=== PATIENT | female | born 1940 | race Caucasian/White ===

== ENCOUNTER 2017-03-25 09:56 | Day surgery (SDC) | payer OTHER ==
[~2017-03-25] VITALS: Ht 144.8 cm; Wt 77.6 kg
[~2017-03-25 09:56] MED LIST: ALBU8HFA2 INH; ALBU90OI INH; ALBU90OI6 INH; ALBU90OI61 INH; ALLERGY RELIE15.8 ML INH; ALLERGY RELIEF10 MG PO; ALPR.5 PO; ALPR1 PO; CAPT25 PO; CELE200 PO; CLON.5 PO; Cipro500 MG PO; DICL.1SO OD; DICL25ER PO; DICL75ER PO; DIPATR PO; DIPH50 PO; ERGO400 PO; FLUT44OIA IH; Flovent Diskus50 MCG; GABA300 PO; GABA400 PO; GABA800 PO; GUMMY1 EACH PO; HYDACE5325 PO; LEVA.63IS IH; LEVALBUTEROL; LEVCAR10 PO; LEVFLO500 PO; LISI5 PO; LORA1 PO; LOSA50 PO; LOSARTAN POTASS25 MG PO; MELO7.5 PO; METH5 PO; METO50 PO; MILN100T PO; MONT10T PO; NAPR220 PO; NAPR550 PO; OMEP20ER PO; OMEP40CA12 PO; OXYACE5T PO; OXYC5 PO; PANT40 PO; PROM25 PO; Prednisone20 MG PO; QUET25 PO; SULTRIDS PO; SULTRISS PO; TIZA4 PO; TIZANIDINE PO; TRAM50 PO; VITAMIN D5000 UNIT PO
== END 2017-03-25 11:53 | disposition home or self-care (01) ==
LOC: ORSCMMR 09:56
PROVIDERS: Internal Medicine Gastroenterology
PROC: 0DB68ZX Excision of Stomach, Via Natural or Artificial Opening Endoscopic, Diagnostic (ICD-10-PCS; principal; 2017-03-25 11:00)
PROC: 0DB88ZX Excision of Small Intestine, Via Natural or Artificial Opening Endoscopic, Diagnostic (ICD-10-PCS; principal; 2017-03-25 11:00)
PROC: 0DB48ZX Excision of Esophagogastric Junction, Via Natural or Artificial Opening Endoscopic, Diagnostic (ICD-10-PCS; principal; 2017-03-25 11:00)
DX: R10.13 Epigastric pain (principal); K21.9 Gastro-esophageal reflux disease without esophagitis; K29.70 Gastritis, unspecified, without bleeding; J44.9 Chronic obstructive pulmonary disease, unspecified; Z79.899 Other long term (current) drug therapy; E66.01 Morbid (severe) obesity due to excess calories; Z68.37 Body mass index [BMI] 37.0-37.9, adult
CPT/HCPCS: 88305; 88342; J7120

== ENCOUNTER 2017-04-16 00:45 | Emergency (ER) | payer OTHER ==
[~2017-04-16] VITALS: Ht 147.3 cm; Wt 77.1 kg
[2017-04-16 01:15] LABS: Calcium, Ionized (POC) 1.19 mmol/L (1.10-1.46); Chloride (POC) 102 mmol/L (98-108); Glucose (ISTAT POC) 170 mg/dL (70-99); Hemoglobin (POC) 15.3 g/dL (12.0-16.0); Potassium (POC) 4.6 mmol/L (3.5-5.5); Sodium (POC) 140 mmol/L (135-148); Total CO2 (POC) 28 mmol/L (21-32)
[2017-04-16 01:53] LABS: BASOPHILS ABSOLUTE AUTO 0.03 K/mm3 (0.00-0.23); BASOPHILS PERCENT AUTO 1 % (0-2); EOSINOPHILS ABSOLUTE AUTO 0.21 K/mm3 (0.00-0.68); EOSINOPHILS PERCENT AUTO 4 % (0-6); Hemoglobin 12.9 g/dL (11.5-16.0); IMMATURE GRAN ABSOLUTE AUTO 0.01 K/mm3 (0.00-0.10); IMMATURE GRAN PERCENT AUTO 0 % (0-1); LYMPHOCYTES ABSOLUTE AUTO 1.78 K/mm3 (0.84-5.20); LYMPHOCYTES PERCENT AUTO 33 % (21-46); MONOCYTES PERCENT AUTO 9 % (4-13); Mean Corpuscular HGB 29.9 pg (26.0-34.0); Mean Corpuscular HGB Conc 30.7 g/dL (31.5-36.5); Mean Corpuscular Volume 97 fL (80-100); NEUTROPHILS PERCENT AUTO 53 % (41-73); Platelet Count 150 K/mm3 (150-400); RDW Coefficient Variation 13.5 % (11.7-14.2); RDW Standard Deviation 48.4 fL (35.1-46.3); Red Blood Cell Count 4.32 M/mm3 (3.80-5.20); White Blood Cell Count 5.33 K/mm3 (4.00-11.30)
[2017-04-16 02:09] LABS: Albumin/Globulin Ratio 0.9 (0.8-1.8); Bilirubin, Total 0.3 mg/dL (0.1-1.0); Bun/Creatinine Ratio 22.1 (12.0-20.0); Calcium, Blood 8.3 mg/dL (8.5-10.1); Creatinine, Blood 1.04 mg/dL (0.40-1.00); Globulin, Blood 3.2 g/dL (2.2-4.0); Potassium, Blood 4.4 mmol/L (3.5-5.5); Total Protein, Blood 6.2 g/dL (6.4-8.2)
== END 2017-04-16 05:03 | disposition home or self-care (01) ==
LOC: ER 00:45
PROVIDERS: Emergency Medicine
DX: N99.528 Other complication of incontinent external stoma of urinary tract (principal); R39.198 Other difficulties with micturition; Z88.0 Allergy status to penicillin; Z88.8 Allergy status to other drugs, medicaments and biological substances; Z79.899 Other long term (current) drug therapy; J45.909 Unspecified asthma, uncomplicated
CPT/HCPCS: 36415; 51701; 74177; 80047; 80053; 85014; 85025; 99284; Q9967

== ENCOUNTER → 2018-09-02 | Outpatient (CLI) | payer OTHER | END | disposition home or self-care (01) | LOC: LAB SHORT 18:00 → LAB 18:00 → LAB FUT 09-02 11:30 | DX: D86.9 Sarcoidosis, unspecified (principal); K52.9 Noninfective gastroenteritis and colitis, unspecified; R53.83 Other fatigue | CPT/HCPCS: 87015; 87045; 87046; 87177; 87205; 87209; 87493; 87899 ==

== ENCOUNTER 2018-12-22 09:22 | Emergency (ER) | payer OTHER ==
[~2018-12-22] VITALS: Ht 139.7 cm; Wt 74.8 kg
[2018-12-22] MEDS ORDERED: OMEPRAZOLE20 MG PO (09:48)
[2018-12-22] MEDS ORDERED: FLUT1DIS5 INH (09:49)
[2018-12-22 09:58] LABS: BASOPHILS ABSOLUTE AUTO 0.05 K/mm3 (0.00-0.23); BASOPHILS PERCENT AUTO 1 % (0-2); EOSINOPHILS ABSOLUTE AUTO 0.23 K/mm3 (0.00-0.68); EOSINOPHILS PERCENT AUTO 3 % (0-6); Hematocrit 43.1 % (33.0-51.0); Hemoglobin 13.8 g/dL (11.5-16.0); IMMATURE GRAN ABSOLUTE AUTO 0.01 K/mm3 (0.00-0.10); IMMATURE GRAN PERCENT AUTO 0 % (0-1); LYMPHOCYTES ABSOLUTE AUTO 2.24 K/mm3 (0.84-5.20); LYMPHOCYTES PERCENT AUTO 34 % (21-46); MONOCYTES PERCENT AUTO 8 % (4-13); Mean Corpuscular Volume 97 fL (80-100); NEUTROPHILS ABSOLUTE AUTO 3.65 K/mm3 (1.96-9.15); NEUTROPHILS PERCENT AUTO 55 % (41-73); Platelet Count 125 K/mm3 (150-400); RDW Coefficient Variation 14.8 % (11.7-14.2); RDW Standard Deviation 53.4 fL (35.1-46.3); Red Blood Cell Count 4.45 M/mm3 (3.80-5.20); White Blood Cell Count 6.68 K/mm3 (4.00-11.30)
[2018-12-22 10:12] LABS: Alanine Aminotransfer (ALT/SGP 24 U/L (12-78); Albumin, Blood 3.1 g/dL (3.4-5.0); Albumin/Globulin Ratio 0.9 (0.8-1.8); Alk Phos 125 U/L (50-136); Anion Gap 10 mmol/L (6-16); Aspartate Aminotrans (AST/SGOT 33 U/L (12-37); Bilirubin, Total 0.5 mg/dL (0.1-1.0); Blood Urea Nitrogen 9 mg/dL (8-24); Bun/Creatinine Ratio 12.4 (12.0-20.0); CO2, Blood 21 mmol/L (21-32); Calcium, Blood 8.6 mg/dL (8.5-10.1); Chloride, Blood 113 mmol/L (98-108); Creatinine, Blood 0.72 mg/dL (0.40-1.00); Globulin, Blood 3.6 g/dL (2.2-4.0); Glomerular Filtration Rate >60 (60-); Glucose, Blood 134 mg/dL (70-99); Potassium, Blood 3.6 mmol/L (3.5-5.5); Sodium, Blood 144 mmol/L (136-145); Total Protein, Blood 6.7 g/dL (6.4-8.2); Troponin I <0.015 ng/mL (0.000-0.040)
[2018-12-22 11:18] LABS: Source, Urine Clean Catch
[2018-12-22 11:30] LABS: Appearance, Urine Clear (Clear); Bilirubin, Urine Neg (Neg); Blood, Urine 3+ (Neg); Color, Urine Yellow (P-Yellow); Glucose Qualitative, Urine Neg (Neg); Ketones, Urine Neg (Neg); Leukocyte Esterase, Urine Neg (Neg); Nitrite, Urine Pos (Neg); Protein, Urine 1+ (Neg); Urobilinogen, Urine NORM (Normal)
[2018-12-22 12:05] LABS: Bacteria Many /hpf; Squamous Epithelial Cells Few /hpf (Few)
[2018-12-22] MEDS ORDERED: LEVFLO500 PO (14:21)
[2018-12-23] MEDS ORDERED: ALBU2.5V5 NEB (16:42)
== END 2018-12-22 16:15 | disposition home or self-care (01) ==
LOC: ER 09:22
PROVIDERS: Physician Assistant
DX: N39.0 Urinary tract infection, site not specified (principal); R11.2 Nausea with vomiting, unspecified; Z88.0 Allergy status to penicillin; Z88.6 Allergy status to analgesic agent; Z88.8 Allergy status to other drugs, medicaments and biological substances; Z79.899 Other long term (current) drug therapy; J45.909 Unspecified asthma, uncomplicated
CPT/HCPCS: 36415; 51701; 71046; 80053; 81001; 84484; 85025; 87086; 93005; 93010; 96361-59; 96374-59; 96375-59; 99284-25; J1956; J2405; J7120

== ENCOUNTER 2018-12-23 04:03 | Emergency (ER) | payer OTHER ==
[~2018-12-23] VITALS: Ht 139.7 cm; Wt 74.8 kg
[~2018-12-23 04:03] MED LIST changes: +FLUT1DIS5 INH; +OMEPRAZOLE20 MG PO
[2018-12-23 05:15] LABS: Calcium, Ionized (POC) 1.18 mmol/L (1.10-1.46); Chloride (POC) 112 mmol/L (98-108); Creatinine (POC) 0.6 mg/dL (0.6-1.0); Glucose (ISTAT POC) 125 mg/dL (70-99); Hemoglobin (POC) 12.2 g/dL (12.0-16.0); Potassium (POC) 3.9 mmol/L (3.5-5.5); Sodium (POC) 143 mmol/L (135-148); Total CO2 (POC) 24 mmol/L (21-32)
[2018-12-23] MEDS ORDERED: ALBU2.5V5 NEB (16:42)
[2018-12-24] MEDS ORDERED: LOPE2C PO (00:31)
[2018-12-24] MEDS ORDERED: BENADRYL25 MG PO (00:32)
== END 2018-12-23 06:04 | disposition home or self-care (01) ==
LOC: ER 04:03
PROVIDERS: Emergency Medicine
DX: K29.70 Gastritis, unspecified, without bleeding (principal); J45.909 Unspecified asthma, uncomplicated; Z88.0 Allergy status to penicillin; Z79.899 Other long term (current) drug therapy
CPT/HCPCS: 80047; 85014; 99283

== ENCOUNTER 2018-12-23 13:27 | Inpatient (IN) | payer OTHER ==
[~2018-12-23] VITALS: Ht 139.7 cm; Wt 76.0 kg
[2018-12-23 14:04] LABS: BASOPHILS ABSOLUTE AUTO 0.02 K/mm3 (0.00-0.23); BASOPHILS PERCENT AUTO 0 % (0-2); EOSINOPHILS ABSOLUTE AUTO 0.06 K/mm3 (0.00-0.68); EOSINOPHILS PERCENT AUTO 1 % (0-6); Hematocrit 42.8 % (33.0-51.0); Hemoglobin 13.4 g/dL (11.5-16.0); IMMATURE GRAN ABSOLUTE AUTO 0.03 K/mm3 (0.00-0.10); IMMATURE GRAN PERCENT AUTO 0 % (0-1); LYMPHOCYTES ABSOLUTE AUTO 1.66 K/mm3 (0.84-5.20); LYMPHOCYTES PERCENT AUTO 23 % (21-46); MONOCYTES ABSOLUTE AUTO 0.55 K/mm3 (0.16-1.47); MONOCYTES PERCENT AUTO 8 % (4-13); Mean Corpuscular HGB 30.9 pg (26.0-34.0); Mean Corpuscular HGB Conc 31.3 g/dL (31.5-36.5); Mean Corpuscular Volume 99 fL (80-100); Mean Platelet Volume 10.5 fL (9.1-12.4); NEUTROPHILS ABSOLUTE AUTO 4.94 K/mm3 (1.96-9.15); NEUTROPHILS PERCENT AUTO 68 % (41-73); Platelet Count 133 K/mm3 (150-400); RDW Coefficient Variation 15.1 % (11.7-14.2); RDW Standard Deviation 55.4 fL (35.1-46.3); Red Blood Cell Count 4.34 M/mm3 (3.80-5.20); White Blood Cell Count 7.26 K/mm3 (4.00-11.30)
[2018-12-23 14:22] LABS: Alanine Aminotransfer (ALT/SGP 24 U/L (12-78); Albumin/Globulin Ratio 0.9 (0.8-1.8); Alk Phos 107 U/L (50-136); Anion Gap 5 mmol/L (6-16); Aspartate Aminotrans (AST/SGOT 36 U/L (12-37); Bilirubin, Total 0.6 mg/dL (0.1-1.0); Blood Urea Nitrogen 10 mg/dL (8-24); CO2, Blood 24 mmol/L (21-32); Calcium, Blood 8.5 mg/dL (8.5-10.1); Chloride, Blood 115 mmol/L (98-108); Creatinine, Blood 0.71 mg/dL (0.40-1.00); Globulin, Blood 3.4 g/dL (2.2-4.0); Glomerular Filtration Rate >60 (60-); Glucose, Blood 110 mg/dL (70-99); Sodium, Blood 144 mmol/L (136-145); Total Protein, Blood 6.4 g/dL (6.4-8.2)
[2018-12-23] MEDS ORDERED: ALBU2.5V5 NEB (16:42)
[2018-12-23 17:13] LABS: Source, Urine Clean Catch
[2018-12-23 17:16] LABS: Bilirubin, Urine Neg (Neg); Blood, Urine 3+ (Neg); Glucose Qualitative, Urine Neg (Neg); Ketones, Urine 1+ (Neg); Leukocyte Esterase, Urine Neg (Neg); Nitrite, Urine Neg (Neg); Protein, Urine Neg (Neg); Urobilinogen, Urine NORM (Normal)
[2018-12-23 17:32] LABS: Appearance, Urine Hazy (Clear); Color, Urine Yellow (P-Yellow)
[2018-12-23 18:06] LABS: Squamous Epithelial Cells Rare /hpf (Few)
[2018-12-23 18:07] LABS: Bacteria Few /hpf
[2018-12-24] MEDS ORDERED: LOPE2C PO (00:31)
[2018-12-24] MEDS ORDERED: BENADRYL25 MG PO (00:32)
--- NOTE | 2018-12-24 01:47 | NUR ---
BEGINNING SHIFT SUMMARY ASSUMED CARE PT @ 1915. PT WAS LYING IN BED C/O SEVERE NEASEA EYES CLOSED AND MOANING. IV INFLITRATED AND WENDY.BXM INSERTED NEW IV INTO ZACH INFUSING WITH NS AND ABX . PT C/O PAIN AT IV SITE, HEAT PACK APPLIED AND HAS DENIED PAIN SINCE. INSPIRATORY WHEEZES R LUNG, BREATHING UNLABRED, DYSPNEA ON EXERTION, DENIES SOB. HEART SOUNDS REGULAR. NUMBNESS AND TINGLING IN LOWER EXTREMITIES. GENERALIZED WEAKNESS. HPERACTIVE BOWEL SOUNDS AND LIQUID STOOLS THROUGHOUT SHIFT. HX OF GASTRITIS. HOSPITALIST CALLED AND PERSCRIBED IMODIAM. PT HAS A FELISHA BLADDER IN THE RLQ AND WILL STRAIGHT CATH HERSELF PRN. URINE CLOUDY, YELLOW, AND HAS AN ODER. BED IN LOWEST POSITION, CALL LIGHT IN REACH, WILL CONTINUE TO MONITOR.
--- NOTE | 2018-12-24 05:03 | NUR ---
END OF SHIFT SUMMARY PT DENIES NEASEA AT THIS TIME. PT STATES SHE IS FEELING MUCH BETTER, ESPECIALLY BECAUSE SHE GOT TO SLEEP. PT IS SMILING AND DENIES ANY PAIN. SHE STATES THAT THE PAIN THAT WAS IN HER STOMACH IS GONE. PT REQUESTED MORE IMODIUM FOR HER DIARRHEA. CALL LIGHT IN REACH, BED IN LOWEST POSITION. WILL CONTINUE TO MONITOR UNTIL DAYSHIFT NURSE ARRIVES.
[2018-12-24 13:57] LABS: Adenovirus F 40/41 Not Detected (NOT DETECT); Astrovirus Not Detected (NOT DETECT); Campylobacter Sp Not Detected (NOT DETECT); Cryptosporidium Not Detected (NOT DETECT); Cyclospora Cayetanensis Not Detected (NOT DETECT); E. Coli O157 Not Detected (NOT DETECT); Entamoeba Histolytica Not Detected (NOT DETECT); Enteroaggregative E. coli-EAEC Not Detected (NOT DETECT); Enteropathogenic E. coli-EPEC Not Detected (NOT DETECT); Enterotoxigenic E. coli-ETEC Not Detected (NOT DETECT); Giardia Lamblia Not Detected (NOT DETECT); Norovirus GI/GII Not Detected (NOT DETECT); Plesiomonas Shigelloides Not Detected (NOT DETECT); Rotavirus A Not Detected (NOT DETECT); Salmonella Sp Not Detected (NOT DETECT); Sapovirus Not Detected (NOT DETECT); Shiga Toxin-prod E. coli-STEC Not Detected (NOT DETECT); Shigella/Enteroin E. coli-EIEC Not Detected (NOT DETECT); Vibrio Cholerae Not Detected (NOT DETECT); Vibrio Sp Not Detected (NOT DETECT); Yersinia Enterocolitica Not Detected (NOT DETECT)
--- NOTE | 2018-12-24 14:49 | NUR ---
advance directive packet given
--- NOTE | 2018-12-24 16:43 | NUR ---
SHIFT SUMMARY THE PATIENT IS PLEASANT AND COOPERATIVE. VITALS HAVE BEEN STABLE. PATIENT HAS CONTINUED TO HAVE LOOSE STOOLS THIS SHIFT AND IS GIVEN IMMODIUM PRN. SPOKE WITH DR VERA AND RECEIEVED AND ORDER FOR A GASTROINTESTINAL PANEL. SPECIMEN COLLECTED AND SENT TO LAB; ALL RESULTS NEGATIVE. PATIENT STATES LOOSE STOOLS ARE A CHRONIC CONDITION FOR HER. SHE IS BECOMING RAW TO THE BUTTOCKS D/T FREQUENT STOOLS. BARRIER CREAM HAS BEEN APPLIED AFTER EACH BM. PATIENT CONTINUES ON IV ABX WITHOUT S/SX OF ADVERSE REACTIONS NOTED OR REPORTED. PATIENT CALLS STAFF FOR HELP APPROPRIATELY. WILL CONTINUE TO MONITOR AND PROVIDE CARE NEEDED.
--- NOTE | 2018-12-25 05:09 | NUR ---
Shift Summary Patient slept intermittently between cares. She had several loose, incontinent bowel movements overnight. Required cathing to neobladder x3. She complained of nausea at approximately 0220, and zofran was administered. She stated nausea resolved after a bowel movement.
--- NOTE | 2018-12-25 16:09 | NUR ---
SHIFT SUMMARY THE PATIENT HAD AN UNEVENTFUL DAY; NOTHING OUT OF THE ORDINARY OCCURED. THE PATIENT DOES CONTINUE TO HAVE FREQUENT, LOOSE STOOLS HOWEVER DENIES NAUSEA AND VOMITING. MINIMAL APPITITE MAINLY BECAUSE THE FOOD SEEMS TO GO RIGHT THROUGH HER. THE PATIENT CONTINUES ON IV ABX WITHOUT NO S/SX OF ADVERSE REACTIONS NOTED OR REPORTED. COMPLAINED OF SOME BACK AND SHOULDER PAIN THAT IS CHRONIC IN NATURE; MEDICATED WITH TYLENOL PER EMAR, GAVE THE PATIENT A K-PAD FOR HEAT AND PLACED AN EGG-CRATE TO THE PATIENT'S BED, ALL WHICH HAVE BEEN EFFECTIVE. VITALS HAVE BEEN STABLE. PATIENT HAS STRAIGHT-CATH'ED HER NEOBLADDER TWICE THIS SHIFT WITH THE ASSISTANCE OF THIS NURSE. THERE HAVE BEEN NO ACUTE CHANGES NOTED OR REPORTED ON THIS SHIFT. WILL CONTINUE TO MONITOR AND PROVIDE CARE.
--- NOTE | 2018-12-26 04:17 | NUR ---
Shift Summary Patient had a better night overall than last night. She slept intermittently between cares. She was able to transfer to the commode with assist of 1-2 SBA and GBW. She offered no c/o nausea. PRN Tylenol was effective for back pain.
[2018-12-26] MEDS ORDERED: PRED20 (11:44)
[2018-12-26] MEDS ORDERED: Vsl#3 Capsule1 EACH PO (11:44)
[2018-12-26] MEDS ORDERED: METR500 PO (11:45)
[2018-12-26] MEDS ORDERED: CEFU500T30 PO (11:45)
--- NOTE | 2018-12-26 12:05 | NUR ---
DISCHARGE INSTRUCTIONS GIVEN TO PATIENT VERBALLY WELL A PRINTED COPY. ALL QUESTIONS ANSWERED. PATIENT DISCHARGED HOME WITH HER CAREGIVER, MAYO, AT 1200.
== END 2018-12-26 12:04 | disposition home or self-care (01) | DRG 178 ==
LOC: ER 13:27 → MEDS 17:13
PROVIDERS: Physician Assistant; ADMIT Hospitalist
DX: J69.0 Pneumonitis due to inhalation of food and vomit (principal); N39.0 Urinary tract infection, site not specified; J45.41 Moderate persistent asthma with (acute) exacerbation; I10 Essential (primary) hypertension; K21.9 Gastro-esophageal reflux disease without esophagitis; D86.9 Sarcoidosis, unspecified; K74.60 Unspecified cirrhosis of liver; R19.7 Diarrhea, unspecified; Z66 Do not resuscitate; J44.9 Chronic obstructive pulmonary disease, unspecified; M79.7 Fibromyalgia; E86.0 Dehydration; Z88.6 Allergy status to analgesic agent; Z88.0 Allergy status to penicillin; Z88.8 Allergy status to other drugs, medicaments and biological substances; Z79.51 Long term (current) use of inhaled steroids; Z79.899 Other long term (current) drug therapy
CPT/HCPCS: 0097U; 36415; 71045; 80053; 81001; 83605; 83690; 85025; 96361; 96365; 96375; 99285-25; A9270; J0456; J0696; J1650; J2405; J7030; J7050; J7512

== ENCOUNTER 2018-12-28 14:43 | Observation (INO) | payer OTHER ==
[~2018-12-28] VITALS: Ht 139.7 cm; Wt 79.3 kg
[~2018-12-28 14:43] MED LIST changes: +ALBU2.5V5 NEB; +BENADRYL25 MG PO; +CEFU500T30 PO; +LOPE2C PO; +METR500 PO; +PRED20; +Vsl#3 Capsule1 EACH PO
[2018-12-28 15:43] LABS: BASOPHILS ABSOLUTE AUTO 0.02 K/mm3 (0.00-0.23); BASOPHILS PERCENT AUTO 0 % (0-2); EOSINOPHILS ABSOLUTE AUTO 0.15 K/mm3 (0.00-0.68); EOSINOPHILS PERCENT AUTO 2 % (0-6); Hematocrit 41.5 % (33.0-51.0); Hemoglobin 13.3 g/dL (11.5-16.0); IMMATURE GRAN ABSOLUTE AUTO 0.03 K/mm3 (0.00-0.10); IMMATURE GRAN PERCENT AUTO 0 % (0-1); LYMPHOCYTES ABSOLUTE AUTO 0.97 K/mm3 (0.84-5.20); LYMPHOCYTES PERCENT AUTO 13 % (21-46); MONOCYTES ABSOLUTE AUTO 0.58 K/mm3 (0.16-1.47); MONOCYTES PERCENT AUTO 8 % (4-13); Mean Corpuscular HGB 31.1 pg (26.0-34.0); Mean Corpuscular Volume 97 fL (80-100); Mean Platelet Volume 10.5 fL (9.1-12.4); NEUTROPHILS ABSOLUTE AUTO 6.03 K/mm3 (1.96-9.15); NEUTROPHILS PERCENT AUTO 77 % (41-73); Platelet Count 106 K/mm3 (150-400); RDW Coefficient Variation 15.6 % (11.7-14.2); RDW Standard Deviation 55.8 fL (35.1-46.3); Red Blood Cell Count 4.28 M/mm3 (3.80-5.20); White Blood Cell Count 7.78 K/mm3 (4.00-11.30)
[2018-12-28 16:00] LABS: Alanine Aminotransfer (ALT/SGP 36 U/L (12-78); Albumin, Blood 3.2 g/dL (3.4-5.0); Alk Phos 98 U/L (50-136); Anion Gap 7 mmol/L (6-16); Aspartate Aminotrans (AST/SGOT 42 U/L (12-37); Bilirubin, Total 0.7 mg/dL (0.1-1.0); Blood Urea Nitrogen 9 mg/dL (8-24); Bun/Creatinine Ratio 10.2 (12.0-20.0); CO2, Blood 23 mmol/L (21-32); Calcium, Blood 8.4 mg/dL (8.5-10.1); Chloride, Blood 113 mmol/L (98-108); Creatinine, Blood 0.88 mg/dL (0.40-1.00); Globulin, Blood 3.2 g/dL (2.2-4.0); Glomerular Filtration Rate >60 (60-); Glucose, Blood 169 mg/dL (70-99); Potassium, Blood 2.7 mmol/L (3.5-5.5); Sodium, Blood 143 mmol/L (136-145); Total Protein, Blood 6.4 g/dL (6.4-8.2)
[2018-12-28 16:24] LABS: Bilirubin, Urine Neg (Neg); Blood, Urine 4+ (Neg); Glucose Qualitative, Urine Neg (Neg); Ketones, Urine Neg (Neg); Leukocyte Esterase, Urine 2+ (Neg); Nitrite, Urine Neg (Neg); Protein, Urine 2+ (Neg); Specific Gravity, Urine 1.015 (1.003-1.022); Urobilinogen, Urine NORM (Normal); pH, Urine 6.5 (5.0-8.0)
[2018-12-28 16:32] LABS: Appearance, Urine Cloudy (Clear); Color, Urine Yellow (P-Yellow)
[2018-12-28 16:33] LABS: White Blood Cells, Urine TNTC /hpf (0-5)
[2018-12-28 16:34] LABS: Red Blood Cells, Urine TNTC /hpf (0-2); Renal Epithelial Few /hpf (0-Rare)
[2018-12-28 16:36] LABS: Bacteria Many /hpf; Squamous Epithelial Cells Not Seen /hpf (Few)
[2018-12-28 18:49] LABS: Campylobacter Sp Not Detected (NOT DETECT)
[2018-12-28 18:54] LABS: Adenovirus F 40/41 Not Detected (NOT DETECT); Astrovirus Not Detected (NOT DETECT); Cryptosporidium Not Detected (NOT DETECT); Cyclospora Cayetanensis Not Detected (NOT DETECT); E. Coli O157 Not Detected (NOT DETECT); Entamoeba Histolytica Not Detected (NOT DETECT); Enteroaggregative E. coli-EAEC Not Detected (NOT DETECT); Enteropathogenic E. coli-EPEC Not Detected (NOT DETECT); Enterotoxigenic E. coli-ETEC Not Detected (NOT DETECT); Giardia Lamblia Not Detected (NOT DETECT); Norovirus GI/GII Not Detected (NOT DETECT); Plesiomonas Shigelloides Not Detected (NOT DETECT); Rotavirus A Not Detected (NOT DETECT); Salmonella Sp Not Detected (NOT DETECT); Sapovirus Not Detected (NOT DETECT); Shiga Toxin-prod E. coli-STEC Not Detected (NOT DETECT); Shigella/Enteroin E. coli-EIEC Not Detected (NOT DETECT); Vibrio Cholerae Not Detected (NOT DETECT); Vibrio Sp Not Detected (NOT DETECT); Yersinia Enterocolitica Not Detected (NOT DETECT)
--- NOTE | 2018-12-29 05:15 | NUR ---
SHIFT SUMMARY PT APPEARS DEPRESSED AND FEARFUL OF ILLNESS AND CONTINUED DECLINE OF ABILITLY TO CARE FOR SELF. PT HAS CHRONIC DIARRHEA THAT SHE HAS REPORTED TO BE MORE SEVERE. PT HAD 4 EPISODES OF LOOSE STOOL THIS EVENING. BUTTOCKS RAW AND RED FROM FREQUENT STOOLS. BARRIER CREAM APPLIED. PT HAS SUPRAPUBIC STOMA IN WHICH SHE STRAIGHT CATHS AT HOME. NEW ORDER THAT PT CAN SELF CATH. STRAIGHT CATH'D X 3 THIS EVENING. SWELLING TO BLE'S NOTED. ABD LARGE, AND TENDER. PT STATED THAT SHE DID NOT FEEL SHE COULD STAND OR GET UP. BED PENG USED THIS EVENING. 40 MEQ KRIDER GIVEN. TELEMETRY PLACED. PT SR 95. VITAL SIGNS STABLE. WILL CONTINUE TO MONITOR AND REPORT TO DAY RN.
[2018-12-29 05:27] LABS: Anion Gap 8 mmol/L (6-16); Blood Urea Nitrogen 11 mg/dL (8-24); Bun/Creatinine Ratio 13.1 (12.0-20.0); CO2, Blood 23 mmol/L (21-32); Calcium, Blood 7.7 mg/dL (8.5-10.1); Chloride, Blood 116 mmol/L (98-108); Creatinine, Blood 0.84 mg/dL (0.40-1.00); Glomerular Filtration Rate >60 (60-); Glucose, Blood 191 mg/dL (70-99); Magnesium, Blood 1.8 mg/dL (1.6-2.4); Potassium, Blood 3.1 mmol/L (3.5-5.5); Sodium, Blood 147 mmol/L (136-145)
--- NOTE | 2018-12-29 12:06 | NUR ---
QUESTRAN: DR. DEVRIES REPORTED TO RN THAT SHE WANTED TO ENSURE THAT THE PATIENT RECEIVED THE FIRST DOSE OF THE QUESTRAN TO BE TODAY PRIOR TO LUNCH. PLACED ONE TIME ORDER FOR PRE-LUNCH DOSE.
--- NOTE | 2018-12-29 13:52 | NUR ---
FAT, [facility]: LAB CALLED RN REGARDING THE STOOL SAMPLE. THEY WANTED TO KNOW IF IT WAS INTENDED TO BE A 24 HR SAMPLE OR A RANDOM. SPOKE WITH DR. DEVRIES. IT WAS INTENDED TO BE A RANDOM SAMPLE ONLY. ORDER CORRECTED PER LAB REQUEST.
--- NOTE | 2018-12-29 16:39 | NUR ---
COUGH: PATIENT HAS A DRY HACKING COUGH THAT IS EXACERBATED WITH THE BREATHING TREATMENTS. RT RECOMMENDED A COUGH PRN TREATMENT. NOTIFIED DR. DEVRIES. NEW ORDERS TO FOLLOW.
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
[2018-12-30 05:06] LABS: Anion Gap 5 mmol/L (6-16); Blood Urea Nitrogen 9 mg/dL (8-24); Bun/Creatinine Ratio 12.6 (12.0-20.0); CO2, Blood 26 mmol/L (21-32); Calcium, Blood 7.8 mg/dL (8.5-10.1); Chloride, Blood 116 mmol/L (98-108); Creatinine, Blood 0.72 mg/dL (0.40-1.00); Glomerular Filtration Rate >60 (60-); Glucose, Blood 144 mg/dL (70-99); Magnesium, Blood 1.9 mg/dL (1.6-2.4); Phosphorus, Blood 2.4 mg/dL (2.5-4.9); Potassium, Blood 3.1 mmol/L (3.5-5.5); Sodium, Blood 147 mmol/L (136-145)
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
[2018-12-30 08:51] LABS: C-REACTIVE PROTEIN, EXT RANGE 0.561 mg/dL (0.000-0.300)
[2018-12-30 08:52] LABS: Thyroid Stimulating Hormone 2.11 uIU/mL (0.360-4.800)
[2018-12-30 12:07] LABS: FATS, NEUTRAL Increased (.); FATS, TOTAL Increased (.)
--- NOTE | 2018-12-30 17:38 | NUR ---
SHIFT SUMMARY PT AWAKE, DURING SHIFT REPORT, REPORTING BOWEL INCONTINENCE. PT CLEANED AND ATTENDS CHANGED. BOTTOM EXCORIATED FROM DIARRHEA; CALAZIME LOTION APPLIED. DR DEVRIES IN TO SEE PT AFTER BREAKFAST. PT TO STAY ONE MORE DAY. STOOL CX'S ORDERED AND LATER OBTAINED AND SENT. PT REPORTED DIARRHEA SLOWING DOWN TODAY. PT ALSO WITH NEOBLADDER AND HAS TO SELF CATH PRN. PT REQUESTING STRAIGHT CATH KIT TO SELF CATH. RT IN TO SEE PT WELL, REPORTING RT TX'S NOT HELPING PT. PT C/O INCREASED COUGH A RESULT AND REQUESTING COUGH SYRUP WITH CODIENE FOR SORE THROAT AND COUGH. DR DEVRIES NOTIFIED; NEW ORDERS PLACED. P/T HERE THIS AFTERNOON AND ABLE TO GET PT UP AND WALKING OUT TO [facility]. PT LATER SITTING IN CHAIR AT BS. BACK TO BED FOR SHORT NAP AND THEN CALLED TO AMBULATE TO [facility]. PT SITTING IN CHAIR FOR DINNER. SENIOR COMPENSATION ANALYST HERE THIS AFTERNOON TO SEE PT AND GET HOME CARE SET UP. POSSIBLE D/C TOMORROW. FAMILY BACK AGAIN TONIGHT TO SEE PT AT THIS TIME. CALL LT IN REACH.
--- NOTE | 2018-12-31 05:02 | NUR ---
SHIFT SUMMARY PATINT LESS ANXIOUS TO GET OUT OF BED AND USE BATHROOM THAN PREVIOUS IMPREGNATOR. PATIENT WAS VERY EXCITED TO HAVE A LOOSE FORM STOOL AND STATES SHE FEELS STRONGER AND THAT THE DIARRHEA HAS GREATLY IMPROVED. PATIENT PROVIDED WITH 3 STRAIGHT CATH KITS TO USE IN NEOBLADDER. PATIENT POURED URINE INTO TOILET SO ACCURATE COUNT NOT POSSIBLE. PATIENT UP 1 PERSON ASSIST TO BATHROOM. AAOX4. WILL CONTINUE TO MONITOR.
[2018-12-31 05:41] LABS: Anion Gap 8 mmol/L (6-16); Blood Urea Nitrogen 8 mg/dL (8-24); Bun/Creatinine Ratio 10.6 (12.0-20.0); CO2, Blood 25 mmol/L (21-32); Calcium, Blood 8.1 mg/dL (8.5-10.1); Chloride, Blood 112 mmol/L (98-108); Creatinine, Blood 0.76 mg/dL (0.40-1.00); Glomerular Filtration Rate >60 (60-); Glucose, Blood 132 mg/dL (70-99); Magnesium, Blood 1.9 mg/dL (1.6-2.4); Phosphorus, Blood 2.7 mg/dL (2.5-4.9); Potassium, Blood 3.5 mmol/L (3.5-5.5); Sodium, Blood 145 mmol/L (136-145)
[2018-12-31] MEDS ORDERED: Banatrol1 EACH PO (11:51)
[2018-12-31] MEDS ORDERED: BENZ100A PO (11:52)
[2018-12-31] MEDS ORDERED: Vsl#3 Capsule1 EACH PO (11:52)
[2018-12-31] MEDS ORDERED: Loperamide2 MG PO (11:53)
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
== END 2018-12-31 12:39 | disposition home health service (06) ==
LOC: ER 14:43 → MEDS 14:44
PROVIDERS: Emergency Medicine; Internal Medicine; ADMIT Hospitalist
DX: R19.7 Diarrhea, unspecified (principal); K74.60 Unspecified cirrhosis of liver; I10 Essential (primary) hypertension; E87.6 Hypokalemia; D86.9 Sarcoidosis, unspecified; R82.90 Unspecified abnormal findings in urine; F32.9 Major depressive disorder, single episode, unspecified; K21.9 Gastro-esophageal reflux disease without esophagitis; M79.7 Fibromyalgia; E66.9 Obesity, unspecified; Z88.6 Allergy status to analgesic agent; Z66 Do not resuscitate; Z88.8 Allergy status to other drugs, medicaments and biological substances; Z88.0 Allergy status to penicillin; Z79.899 Other long term (current) drug therapy; Z79.51 Long term (current) use of inhaled steroids
CPT/HCPCS: 0097U; 36415; 80048; 80053; 81001; 82705; 83735; 84100; 84443; 85025; 85651; 86140; 87086; 93005; 93010; 94640; 94760; 96365; 96366; 96367; 96375; 97116; 97162; 97530; 99285-25; G0378; J2550; J3480; J7030; J7060

== ENCOUNTER → 2019-01-17 | Outpatient (CLI) | payer OTHER ==
[~2019-01-17] MED LIST changes: +BENZ100A PO; +Banatrol1 EACH PO; +Loperamide2 MG PO
== END | disposition home or self-care (01) ==
LOC: LAB 15:09 → LAB SHORT 15:09
DX: N39.0 Urinary tract infection, site not specified (principal)
CPT/HCPCS: 87077; 87086; 87186

== ENCOUNTER → 2019-02-20 | Outpatient (CLI) | payer OTHER | END | disposition home or self-care (01) | LOC: LAB SHORT 12:29 → LAB 12:29 → LAB FUT 02-18 10:40 | DX: K29.70 Gastritis, unspecified, without bleeding (principal); R19.7 Diarrhea, unspecified | CPT/HCPCS: 87493 ==

== ENCOUNTER → 2019-09-21 | Outpatient (CLI) | payer OTHER ==
[~2019-09-21] MED LIST changes: +ATROVENT HFA12.9 GM INH; +BUDE.25 INH; +LIDO700A20 TOP; +Ventolin/Prove6.7 GM INH
== END | disposition home or self-care (01) ==
LOC: LAB SHORT 13:53 → LAB UCHC 13:53
DX: R31.9 Hematuria, unspecified (principal)
CPT/HCPCS: 87077; 87086; 87186

== ENCOUNTER → 2019-09-22 | Outpatient (CLI) | payer OTHER | END | disposition home or self-care (01) | LOC: LAB 18:15 → LAB SHORT 18:15 | DX: N89.8 Other specified noninflammatory disorders of vagina (principal) | CPT/HCPCS: 87070; 87205 ==

== ENCOUNTER 2019-10-10 16:49 | Emergency (ER) | payer OTHER ==
[~2019-10-10] VITALS: Ht 139.7 cm; Wt 73.9 kg
[~2019-10-10 16:49] MED LIST changes: -ATROVENT HFA12.9 GM INH; -BUDE.25 INH; -LIDO700A20 TOP; -Ventolin/Prove6.7 GM INH
[2019-10-10] MEDS ORDERED: TRAM50 PO (17:09)
[2019-10-10] MEDS ORDERED: LIDO700A20 TOP (18:21)
[2019-10-12] MEDS ORDERED: GABA800 PO (07:49)
[2019-10-12] MEDS ORDERED: LOSA50 PO (07:49)
[2019-10-12] MEDS ORDERED: Ventolin/Prove6.7 GM INH (07:50)
[2019-10-12] MEDS ORDERED: BUDE.25 INH (07:51)
[2019-10-12] MEDS ORDERED: LOPE2C PO (07:51)
[2019-10-12] MEDS ORDERED: TRAM50 PO (07:52)
[2019-10-12] MEDS ORDERED: ATROVENT HFA12.9 GM INH (07:52)
== END 2019-10-10 18:57 | disposition home or self-care (01) ==
LOC: ER 16:49
DX: M54.5 Low back pain (principal); I10 Essential (primary) hypertension; F32.9 Major depressive disorder, single episode, unspecified; E66.9 Obesity, unspecified; G89.29 Other chronic pain; K21.9 Gastro-esophageal reflux disease without esophagitis; J45.909 Unspecified asthma, uncomplicated; Z88.0 Allergy status to penicillin; Z88.6 Allergy status to analgesic agent; Z88.8 Allergy status to other drugs, medicaments and biological substances; Z79.899 Other long term (current) drug therapy; Z23 Encounter for immunization; W18.30XA Fall on same level, unspecified, initial encounter
CPT/HCPCS: 72131; 72192; 90471; 90714; 99284-25

== ENCOUNTER → 2019-12-13 | Outpatient (CLI) | payer OTHER ==
[~2019-12-13] MED LIST changes: +ATROVENT HFA12.9 GM INH; +BUDE.25 INH; +LIDO700A20 TOP; +Ventolin/Prove6.7 GM INH
[2019-12-13 16:39] LABS: Source, Urine Catheter
[2019-12-13 16:45] LABS: Bacteria Many /hpf; Squamous Epithelial Cells Not Seen /hpf (Few)
== END ==
LOC: LAB EV 16:37 → LAB SHORT 16:37
PROVIDERS: Physician Assistant
DX: R30.9 Painful micturition, unspecified (principal)
CPT/HCPCS: 81015; 87077; 87086; 87186

== ENCOUNTER → 2019-12-29 | Outpatient (CLI) | payer OTHER | END | disposition home or self-care (01) | LOC: LAB SHORT 15:00 → LAB UCHC 15:00 → LAB FUT 12-28 19:10 | DX: N39.0 Urinary tract infection, site not specified (principal) | CPT/HCPCS: 87077; 87086; 87186 ==